=== PATIENT | female | born 1965 | race Caucasian/White ===

== ENCOUNTER 2017-05-01 08:30 | Outpatient (CLI) | payer BC ==
--- NOTE | 2017-05-01 11:37 | MRI ---
PRE AND POST CONTRAST ENHANCED MRI IMAGES OF THE BRAIN: History: Lumbar facet arthropathy. M46.96. Patient with right buttock pain. Technique: Multiplanar, multisequence pre and post contrast enhanced MRI images of the lumbar spine o btained. FINDINGS: For the purposes of this dictation, the last freely mobile vertebral body would be considered to be t he L5 vertebral body. All other vertebral bodies numbered according to this. T12-L1, L1-2, L2-3: Unremarkable. L3-4: There is some disc desiccation seen. There is mild bilateral facet hypertrophy. There is minima l but not significant degree of central and lateral recess stenosis. The neural foramen are patent. L4-5: Disc desiccation is seen. There is bilateral facet hypertrophy and ligamentum flavum hypertroph y. There is a broad based disc bulge. There is grade I anterolisthesis of L4 on L5 measuring approxim ately 3 mm. A moderate degree of central and lateral recess stenosis is present at this level. The ne ural foramen are patent. L5-S1: Disc desiccation is seen. There is an annular fissure seen along the posterior aspect of the a nulus fibrosis extending into the left L5-S1 lateral recess portion of the annulus fibrosis. There is mild facet hypertrophy. The central canal is patent. The neural foramen are also patent. IMPRESSION: Grade I anterolisthesis of L4 on L5 with central and lateral recess stenosis seen. POS: [facility]
== END 2017-05-01 08:31 | disposition home or self-care (01) ==
LOC: MRI 08:30
PROVIDERS: ATTEND Anesthesiology Pain Medicine
DX: M46.96 Unspecified inflammatory spondylopathy, lumbar region (principal); M43.16 Spondylolisthesis, lumbar region; M48.061 Spinal stenosis, lumbar region without neurogenic claudication
CPT/HCPCS: 72158

== ENCOUNTER 2018-12-01 09:17 | Outpatient (CLI) | payer BC ==
--- NOTE | 2018-12-01 11:19 | MRI ---
MRI CERVICAL SPINE NONCONTRAST: 12/01/18 HISTORY: 53-year-old female with right cervical radiculopathy. COMPARISON: 08/15/15. FINDINGS: Cervical spinal cord is normal in size and signal. Vertebral body heights are maintained. C1-2: No central stenosis. C2-3: Mild bilateral facet DJD. Disc space maintained. No central or neural foraminal stenosis. C3-4: Disc space maintained. Mild broad based disc-osteophytic bar complex encroaches upon anterior a spect of the spinal canal, but does not cause central stenosis. Mild to moderate right facet DJD. Mil d left facet DJD. No central or significant neural foraminal stenosis. C4-5: Moderate left facet DJD. Mild right facet DJD. Minimal grade I anterolisthesis of C4 on C5. Sha llow broad based disc-osteophytic bar complex indents the ventral aspect of the thecal sac, and cause s mild central spinal canal stenosis. No right neural foraminal stenosis. Small left uncinate process osteophytes. Apparently new finding of moderate left neural foraminal stenosis. C5-6: New anterior metallic plate and screws at C5 and C6. The previously demonstrated focal left lat eral disc herniation has been surgically resected, resulting in significant interval improvement in t he previously demonstrated high grade left neural foraminal stenosis. Currently, there is mild left n eural foraminal stenosis and no right neural foraminal stenosis. Broad based disc-osteophytic bar com plex causes mild central spinal canal stenosis. Mild right facet DJD. Moderate left facet DJD. C6-7: Broad based disc-osteophytic bar complex and mild ligamentum flavum thickening result in modera te central spinal canal stenosis. Bilateral small to moderate sized uncinate process osteophytes resu lt in moderate bilateral neural foraminal stenosis, right greater than left. Normal bilateral facets. C7-T1: Moderate to severe right facet DJD. Normal left facet joint. Mild right neural foraminal amina nosis. No left neural foraminal stenosis. No significant central stenosis. IMPRESSION: 1. Interval status post anterior cervical discectomy and fusion at C5-6, with resection of the p reviously demonstrated left lateral disc herniation, resulting in significant interval improvement of the previously demonstrated high grade left neural foraminal stenosis. 2. No high grade central spinal canal stenosis at any level. 3. Cervical spondylosis consisting of facet osteoarthrosis at various levels. 4. Moderate neural foraminal stenosis bilaterally at C6-7, and on the left at C4-5. POS: [facility]
--- NOTE | 2018-12-01 11:38 | MRI ---
MRI BRAIN WITH AND WITHOUT CONTRAST: DATE: 12/01/2018. HISTORY: A 53-year-old female with ICD-10 R20.0, paresthesia of skin. TECHNIQUE: Multiple sequences obtained in axial, sagittal, and coronal planes; pre and post IV injection of gado linium-based contrast agent: 14 mL MultiHance. FINDINGS: The ventricles are normal in size and configuration. There is no restricted diffusion, abnormal intr aaxial enhancement, mass, midline shift or any other mass effect, recent intraaxial hemorrhage, or ex traaxial fluid collection. There are scattered tiny T2-hyperintensities in the cerebral white matter consistent with mild chronic ischemic white matter changes due to mild microvascular atherosclerosis. 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 IMPRESSION: 1. Mild chronic ischemic white matter changes. 2. Otherwise negative. jnR POS: [facility]
== END 2018-12-01 09:18 | disposition home or self-care (01) ==
LOC: SCSMRI 09:17
PROVIDERS: ATTEND Psychiatry & Neurology Neurology
DX: R20.2 Paresthesia of skin (principal); I67.82 Cerebral ischemia; M47.812 Spondylosis without myelopathy or radiculopathy, cervical region; M48.02 Spinal stenosis, cervical region; Z98.1 Arthrodesis status
CPT/HCPCS: 70553; 72141

== ENCOUNTER 2019-03-31 12:38 | Outpatient (CLI) | payer BC ==
--- NOTE | 2019-03-31 14:15 | MRI ---
MRI lumbar spine with and without contrast: 03/31/2019 COMPARISON: 05/01/2017 HISTORY: Chronic back pain radiating down the left leg, right hip and right-sided back pain TECHNIQUE: Multiplanar multisequence MR imaging of the lumbar spine provided with and without contras t FINDINGS: The sagittal STIR imaging demonstrates no focal area of osseous marrow edema. There is small volume free fluid in the pelvic cul-de-sac and left hemipelvis, incompletely assessed on this exam. Mild anterolisthesis at L4-5 noted measuring in the 5 mm range. On the basis of 5 lumbar type vertebral bodies, the conus medullaris terminates at the L1-2 level. T12-L1: Mild bilateral facet hypertrophy. Intervertebral disc height and signal intensity within norm al limits. No significant central canal or neural foraminal stenosis. L1-2: Mild disc bulge present. Mild bilateral facet hypertrophy. No significant central canal or neur al foraminal stenosis. L2-3: There is mild bilateral facet hypertrophy. Intervertebral disc height and signal intensity appe ars within normal limits with no significant central canal or neural foraminal stenosis. L3-4: There is mild disc space narrowing and disc desiccation. There is a small left foraminal disc p rotrusion. There is no significant central canal or neural foraminal stenosis. L4-5: There is disc space narrowing and disc desiccation with mild disc bulge. There is prominent juvencio ateral facet hypertrophy with fluid within bilateral facet joints. There is mild central canal stenosis and mild bilateral neural foraminal stenosis. L5-S1: Prominent bilateral facet hypertrophy. There is disc space narrowing with disc desiccation. No significant central canal or neural foraminal stenosis. There are 2 round T2 hyperintense structures associated with the left facet joint posteriorly and lat erally measuring approximately 1.1 and 0.8 cm respectively. Postcontrast imaging demonstrates rim enhancement suggesting synovial cyst formation. The postcontrast imaging demonstrates no focal area o f abnormal enhancement within the osseous structures or the intervertebral discs. The imaged retroperitoneal structures demonstrate no acute findings. IMPRESSION: Degenerative change within the lumbar spine as detailed above. The most significant findi ngs are present at L4-5 on the basis of prominent facet hypertrophy and synovial cyst formation associated with the left facet joint.
== END 2019-03-31 12:39 | disposition home or self-care (01) ==
LOC: SCSMRI 12:38
PROVIDERS: ATTEND Anesthesiology Pain Medicine
DX: M47.26 Other spondylosis with radiculopathy, lumbar region (principal)
CPT/HCPCS: 72158

== ENCOUNTER 2019-05-07 07:37 | Outpatient (CLI) | payer BC ==
--- NOTE | 2019-05-07 10:26 | MRI ---
MRI LEFT KNEE: DATE: 05/07/2019. PROVIDED CLINICAL HISTORY: Left knee pain. FINDINGS: The anterior cruciate ligament, posterior cruciate ligament, medial collateral ligament, and lateral collateral ligamentous complex demonstrate an intact MR appearance, as does the extensor mechanism. There is complex grade III signal involving the body of the lateral meniscus. The medial meniscus de monstrates no evidence for tear. No focal articular cartilage loss is evident. There is a physiologic amount of fluid within the knee joint. There is a small Gant's cyst. No focal concerning regional marrow or muscular signal abnormality is apparent. IMPRESSION: Complex nondisplaced body of the lateral meniscus tear. POS: [facility]
--- NOTE | 2019-05-07 11:32 | MRI ---
MRI RIGHT ELBOW WITHOUT CONTRAST: Date: 05/07/2019 INDICATION: Right elbow pain with history of lateral epicondylitis and surgery. Concern for possible injury to th e lateral humeral epicondyle and biceps tendon. FINDINGS: The biceps and brachialis tendons are intact. Triceps intact. Ulnar collateral ligament, radial colla teral ligament, and lateral ulnar collateral ligament are intact. No osteochondral defect is evident. There is moderate tendinosis of the common extensor origin. The visualized ulnar nerve is normal yves earing. IMPRESSION: Moderate tendinosis of the common extensor origin. POS: [facility]
== END 2019-05-07 07:38 | disposition home or self-care (01) ==
LOC: SCSMRI 07:37
PROVIDERS: ATTEND Orthopaedic Surgery
DX: M25.562 Pain in left knee (principal); G89.29 Other chronic pain; M25.521 Pain in right elbow; S83.272A Complex tear of lateral meniscus, current injury, left knee, initial encounter; M67.823 Other specified disorders of tendon, right elbow

== ENCOUNTER 2019-06-23 09:12 | Outpatient (CLI) | payer BC ==
--- NOTE | 2019-06-23 09:44 | RAD ---
Lumbar spine 4 views flexion and extension HISTORY: Low back pain. Spondylolisthesis. COMPARISON: 01/15/2017. FINDINGS: There are 5 lumbar type vertebrae. Pedicles are intact. Leftward convex curvature on the fr ontal view. Weightbearing lateral views with flexion and extension. Vertebral body heights are maintained. Osteop hytosis most pronounced at the lower facets. There is 7 mm spondylolisthesis at the L4-5 level which does not change upon extension and increases to 8 mm upon flexion. 2 mm spondylolisthesis at the lumbosacral junction is stable upon flexion and extension. IMPRESSION: Minimal translational motion upon flexion associated with L4-5 spondylolisthesis. Unchang ed from the 2017 exam. Other degenerative type changes as detailed above, stable.
== END 2019-06-23 09:13 | disposition home or self-care (01) ==
LOC: BICRAD 09:12
PROVIDERS: ATTEND Anesthesiology Pain Medicine
DX: M43.16 Spondylolisthesis, lumbar region (principal)
CPT/HCPCS: 72110

== ENCOUNTER 2019-10-15 05:52 | Outpatient (CLI) | payer BC, OTHER ==
[2019-10-15 11:29] LABS: #Eosinphils 0.1 thou/uL (0.0-0.7); #Lymphocytes 1.1 thou/uL (1.20-3.40); #Monocytes 0.4 thou/uL (0.11-0.59); #Neutrophils 3.1 thou/uL (1.40-6.50); %Eosinophils 2.6 % (0.0-10.0); %Monocytes 8.9 % (0.0-10.0); %Neutrophils 64.5 % (42.0-75.0); Hemoglobin 12.7 g/dL (12.0-16.0); Mean Corpuscular HGB CONC 33.8 g/dL (32.0-36.0); Mean Corpuscular Hemoglobin 31.2 pg (27.0-31.0); Mean Corpuscular Volume 92.3 fL (78.0-98.0); Mean Platelet Volume 7.5 fL (7.4-10.4); Platelet Count 200 thou/uL (130-400); RBC Distribution Width 11.4 % (11.5-14.5); Red Blood Cell (RBC) Count 4.08 mill/uL (4.20-5.40); White Blood Cell (WBC) Count 4.7 thou/uL (4.8-10.8)
[2019-10-15 11:44] LABS: Bacteria/HPF None Seen HPF (None Seen); Bilirubin Negative (Negative); Blood, Urine Negative (Negative); Clarity Clear (Clear); Glucose, Urine (Dipstick) Normal (Negative); Leukocyte Negative Leu/uL (Negative); Nitrite Negative (Negative); Protein, Urine (Dipstick) Negative (Neg-Trace); RBC/HPF 0-3 HPF (0-3); Squamous Epithelial 0-3 HPF (0-3); Urobilinogen Normal mg/dL (Less than 2); WBC/HPF 0-3 HPF (0-3)
[2019-10-15 12:42] LABS: Anion Gap 13 mmol/L (10-20); BUN (Urea Nitrogen) 16 mg/dL (9.8-20.1); Calc. Creatinine Clearance 0 mL/min (70-130); Calcium 9.3 mg/dL (7.8-10.44); Carbon Dioxide 25 mmol/L (22-29); Chloride 104 mmol/L (98-107); Estimated GFR-MDRD 71; Glucose 90 mg/dL (70-105); Potassium 3.8 mmol/L (3.5-5.1); Sodium 138 mmol/L (136-145)
[2019-10-16 13:16] LABS: SARS-CoV-2 MS2 Positive; SARS-CoV-2 N Gene Negative; SARS-CoV-2 S Gene Negative; SARS-CoV-2 orf1ab Negative
[2019-10-18 11:37] LABS: Lyme IgG/IgM AB <0.91 ISR (0.00-0.90)
== END 2019-10-15 05:53 | disposition home or self-care (01) ==
LOC: LABBT 05:52
PROVIDERS: ATTEND Orthopaedic Surgery Hand Surgery
DX: Z01.812 Encounter for preprocedural laboratory examination (principal); Z11.59 Encounter for screening for other viral diseases; S63.214A Subluxation of metacarpophalangeal joint of right ring finger, initial encounter; M85.642 Other cyst of bone, left hand
CPT/HCPCS: 80048; 81001; 83520; 85025; 85652; 86038; 86200; 86225; 86618; 87635; U0003

== ENCOUNTER 2019-10-19 05:56 | Day surgery (SDC) | payer BC ==
[2019-10-14 10:50] VITALS: BMI 25.0
[2019-10-19] MEDS ORDERED: Fentanyl 100 MCG/2 ML VIAL ONE ×2 (06:22→07:05)
[2019-10-19] MEDS ORDERED: Midazolam HCl 2 mg/2 ml Vial ONE ×2 (06:22→07:05)
[2019-10-19] MEDS ORDERED: Bacitracin Zinc Ointment 30 gm TUBE ONE (06:44)
[2019-10-19] MEDS ORDERED: Sodium Chloride 0.9% 20 ML ONE (06:44)
[2019-10-19] MEDS ORDERED: Betamet Acet/Betamet Na Ph 30 MG/5 ML VIAL ONE (06:44)
[2019-10-19] MEDS ORDERED: Bupivacaine PF 0.5% 30 ML VIAL ONE (06:44)
[2019-10-19] MEDS ORDERED: Ondansetron PF 4 MG/2 ML Vial ONE ×2 (10:51→14:50)
[2019-10-19] MEDS ORDERED: Lidocaine 1% PF 5 ML VIAL ONE (14:50)
[2019-10-19] MEDS ORDERED: Dexamethasone 20 MG/5 ML VIAL ONE (14:50)
[2019-10-19] MEDS ORDERED: PROPOFOL 200 MG/20 ML VIAL ONE (14:50)
[2019-10-19] MEDS ORDERED: Ketorolac Tromethamine 30 MG/ML VIAL ONE (14:50)
[2019-10-19] MEDS ORDERED: Bupivacaine HCl 0.5%/Epinephrine 1:200,000/PF 30 ml Vial ONE (14:52)
--- NOTE | 2019-10-19 22:09 | OP ---
DATE OF PROCEDURE: 10/19/2019 ANESTHESIA: General and LMA technique , augmented by a right side one-shot block. PREOPERATIVE DIAGNOSES: 1. A1 komal tenosynovitis with triggering, contributing to locking at the right ring finger. 2. Right ring finger ulnar subluxation extensor tendon at the MCP joint, required centralization. 3. On the left side osteophyte, dorsal and ulnar with ulnar ganglion 7 to 8 mm from the dorsal thumb IPJ. POSTOPERATIVE DIAGNOSES: 1. A1 komal tenosynovitis with triggering, contributing to locking at the right ring finger. 2. Right ring finger ulnar subluxation extensor tendon at the MCP joint, required centralization. 3. On the left side osteophyte, dorsal and ulnar with ulnar ganglion 7 to 8 mm from the dorsal thumb IPJ. PROCEDURES PERFORMED: 1. Left side thumb: a. Arthrotomy with excision of osteophyte and synovectomy. b. Excision of ganglion cyst, 8 mm. 2. On the right side: a. A1 komal trigger. 3. Left side middle ring finger: a. A1 komal release. b. Flexor tenosynovectomy. c. Extensor tendon centralization. d. Application of Celestone over flexor tendon. INDICATIONS FOR PROCEDURE: The patient with thumb pain, interphalangeal joint mass, and dorsal ulnar osteophyte seen, did not resolve with conservative treatment. On the left side, the patient has both swelling Landon, but primarily felt to have a dorsal subluxation with possible palmar contribution, discovered with intraoperative exam. DESCRIPTION OF PROCEDURE: First, on the left side where tourniquet had been applied in the forearm because IV in the antecubital area. We exsanguinated the limb, gave the patient 12 mL of 0.50% metacarpophalangeal block level at the thumb base and then exsanguinated the limb, inflated the tourniquet to 250 mmHg pressure. A J-shaped incision was then made just ulnar to the mass, parallel to the interphalangeal joint and then 1 to 2 mm on the radial side proximally. We carried through skin and subcutaneous tissue, preserved as much of the ganglion cyst as possible. We followed the stalk into a slight defect in the junction of the middle 3rd and the ulnar 3rd of the extensor insertion. Immediately opening this, there was an osteophyte seen indenting and elevated the tendon, that was approximately 3 mm x 2 mm. It was excised along with the stalk of the mass that went into the joint. Both were sent as separate specimens along with some synovium from the joint. We irrigated the joint. We inflated the tourniquet and obtained hemostasis. We closed the extensor mechanism defect with a running 5-0 Prolene buried knot. We closed the skin with interrupted 5-0 nylon in simple pattern and we sent the specimen of the osteophyte and the ganglion to the lab. A bulky dressing was applied before finishing the contralateral side surgery, and afterwards, it was covered with Coban. The patient then had the right side approached and already had given a block, so only a small amount of Marcaine was given actually over the incision. Outlined a zigzag incision where no cut was made over the MP joint dorsally and a zigzag incision over the very thick A1 komal. During exam the tendon tended to lock in flexion as well as in extension and so we felt we had both palms thus extending the scope and procedure to include the A1 palmar procedure. First, we performed a dorsal approach, carried through skin and subcutaneous tissue where she had a very thin radial retinaculum that was almost so thin that we had difficulty dissected it off the capsule and the maher was thickened on the ulnar side and she had approximately a 1/3 subluxation ulnarly. We thus released the proximal 2/3 of the maher on the ulnar side including half of on the ulnar side, and then we dissected the thin radial retinaculum off the capsule. It was enough, however, to be repaired using a 5 suture [id number] 4-0 prolene technique for capsular reconstruction. The tendon was now centralized, but there was still sensation of mass effect and thickening on the palmar side. Thus, we turned attention to palmar side. We made a 1.5 cm incision, centered over the A1 komal, went down to A1 komal, saw a very thick senate fibrous tissue and then a very thick A1 komal, under which and proximal to it, after releasing the midline under direct visualization with Graham blade, there was very thick flexor tenosynovium, so we performed a flexor tenosynovectomy over 2 cm area and sent some of this as specimen. 3 mL of Celestone was placed here. We deflated the tourniquet. We obtained hemostasis and then closed first the palmar wound with interrupted 4-0 nylon in a mattress pattern and closed the dorsal wound with the same suture technique after obtained hemostasis. The patient was placed in a bulky dressing on the right side with excellent circulation with the MP joint at approximately 20 degrees of flexion involving the ring and small finger, and the index, long, and thumb were free. Job ID: [id number]
== END 2019-10-19 11:35 | disposition home or self-care (01) ==
LOC: SDC 05:56
PROVIDERS: ATTEND Orthopaedic Surgery Hand Surgery
PROC: 0LN80ZZ Release Left Hand Tendon, Open Approach (ICD-10-PCS; principal; 2019-10-19)
PROC: 0LB70ZZ Excision of Right Hand Tendon, Open Approach (ICD-10-PCS; principal; 2019-10-19)
DX: M66.241 Spontaneous rupture of extensor tendons, right hand (principal); M67.442 Ganglion, left hand; M65.341 Trigger finger, right ring finger; M65.9 Synovitis and tenosynovitis, unspecified; M25.741 Osteophyte, right hand; Z79.899 Other long term (current) drug therapy; Z88.5 Allergy status to narcotic agent
CPT/HCPCS: 88304; 88305; J0670; J0690; J0702; J1100; J1885; J2001; J2250; J2405; J2704; J3010; J3490; S0020

== ENCOUNTER 2022-01-11 07:43 | Outpatient (CLI) | payer BC ==
[2022-01-11 10:39] LABS: #Basophils 0.1 10x3/uL (0.0-0.2); #Eosinphils 0.2 10x3/uL (0.0-0.5); #Monocytes 0.4 10x3/uL (0.0-1.1); #Neutrophils 2.5 10x3/uL (1.5-8.4); %Basophils 1.3 % (0.0-2.0); %Eosinophils 4.4 % (0.0-6.0); %Lymphocytes 30.9 % (18.0-47.0); %Neutrophils 54.2 % (40.0-75.0); Hemoglobin 12.5 g/dL (12.0-15.5); Mean Corpuscular HGB CONC 33.6 g/dL (32.0-36.0); Mean Corpuscular Volume 89.4 fl (81.6-98.3); Mean Platelet Volume 9.8 fl (7.4-10.4); Platelet Count 224 10x3/uL (150-450); RBC Distribution Width 13.2 % (11.5-14.5); Red Blood Cell (RBC) Count 4.16 10x6/uL (3.90-5.03); White Blood Cell (WBC) Count 4.6 10x3/uL (3.5-10.5)
[2022-01-11 10:56] LABS: Anion Gap 13 mmol/L (10-20); BUN (Urea Nitrogen) 21 mg/dL (9.8-20.1); Calc. Creatinine Clearance 0 mL/min (70-130); Calcium 9.6 mg/dL (7.8-10.44); Carbon Dioxide 28 mmol/L (22-29); Chloride 106 mmol/L (98-107); Estimated GFR 90; Glucose 87 mg/dL (70-105); Sodium 143 mmol/L (136-145)
== END 2022-01-11 07:44 | disposition home or self-care (01) ==
LOC: LABBT 07:43
PROVIDERS: ATTEND Orthopaedic Surgery
DX: Z01.818 Encounter for other preprocedural examination (principal); S83.282A Other tear of lateral meniscus, current injury, left knee, initial encounter; Z20.822 Contact with and (suspected) exposure to COVID-19
CPT/HCPCS: 71046; 80048; 85025; 87811; 93005; 93010

== ENCOUNTER 2022-01-16 05:45 | Day surgery (SDC) | payer BC ==
[2022-01-14 15:52] VITALS: BMI 23.7
[2022-01-16] MEDS ORDERED: PROPOFOL 20 ML ONE (06:39)
[2022-01-16] MEDS ORDERED: Lidocaine 2% PF 5 ML VIAL ONE ×2 (06:39→07:59)
[2022-01-16] MEDS ORDERED: fentaNYL Citrate/PF 100 MCG/2 ML SYRINGE ONE (06:57)
[2022-01-16] MEDS ORDERED: Sodium Chloride 0.9% 100 ML ONE (07:18)
[2022-01-16] MEDS ORDERED: CEFAZOLIN 2 GM VIAL ONE (07:18)
[2022-01-16] MEDS ORDERED: Ketorolac Tromethamine 30 MG/ML VIAL ONE (07:59)
[2022-01-16] MEDS ORDERED: Ondansetron PF 4 MG/2 ML Vial ONE (07:59)
[2022-01-16] MEDS ORDERED: PROPOFOL 200 MG/20 ML VIAL ONE (07:59)
[2022-01-16] MEDS ORDERED: Dexamethasone 20 MG/5 ML VIAL ONE (07:59)
[2022-01-16] MEDS ORDERED: Bupivacaine HCl 0.5%/Epinephrine 1:200,000/PF 30 ml Vial ONE (07:59)
[2022-01-16] MEDS ORDERED: Lidocaine 1% MPF 2 ML VIAL ONE (07:59)
[2022-01-16] MEDS ORDERED: Fentanyl 100 MCG/2 ML VIAL ONE ×2 (08:52→09:07)
[2022-01-16] MEDS ORDERED: Promethazine HCl 25 MG/ML VIAL ONE (09:44)
[2022-01-16] MEDS ORDERED: traMADol HCl 50 MG TAB ONE (11:08)
== END 2022-01-16 11:30 | disposition home or self-care (01) ==
LOC: SDC 05:45
PROVIDERS: ATTEND Orthopaedic Surgery
PROC: 0SBD4ZZ Excision of Left Knee Joint, Percutaneous Endoscopic Approach (ICD-10-PCS; principal; 2022-01-16)
DX: S83.272A Complex tear of lateral meniscus, current injury, left knee, initial encounter (principal); M23.8X2 Other internal derangements of left knee; Z79.899 Other long term (current) drug therapy; Z88.5 Allergy status to narcotic agent; Z88.8 Allergy status to other drugs, medicaments and biological substances; Z98.1 Arthrodesis status
CPT/HCPCS: J0690; J1100; J1885; J2001; J2405; J2550; J2704; J3010; J3490

== ENCOUNTER 2023-04-30 07:08 | Observation (INO) | payer BC ==
[2023-04-25 09:16] VITALS: BMI 25.3
[2023-04-25 10:08] LABS: Bilirubin Neg (Negative); Blood, Urine Negative (Negative); Clarity Clear (Clear); Glucose, Urine (Dipstick) Normal (Negative); Ketone, Urine Negative (Negative); Leukocyte Negative (Negative); Nitrite Negative (Negative); Protein, Urine (Dipstick) 15 mg/dl (Neg-Trace); Specific Gravity, Urine 1.005 (1.005-1.030); Urobilinogen Normal mg/dL (Less than 2)
[2023-04-25 10:18] LABS: #Eosinphils 0.2 10x3/uL (0.0-0.5); #Monocytes 0.4 10x3/uL (0.0-1.1); #Neutrophils 2.3 10x3/uL (1.5-8.4); %Basophils 0.9 % (0.0-2.0); %Eosinophils 4.1 % (0.0-6.0); %Lymphocytes 33.9 % (18.0-47.0); %Monocytes 8.6 % (0.0-10.0); %Neutrophils 52.3 % (40.0-75.0); Hematocrit 41.1 % (34.9-44.5); Hemoglobin 13.9 g/dL (12.0-15.5); Mean Corpuscular HGB CONC 33.8 g/dL (32.0-36.0); Mean Corpuscular Hemoglobin 30.4 pg (27.0-33.0); Mean Corpuscular Volume 89.9 fl (81.6-98.3); Mean Platelet Volume 9.8 fl (7.4-10.4); Platelet Count 245 10x3/uL (150-450); RBC Distribution Width 12.7 % (11.5-14.5); Red Blood Cell (RBC) Count 4.57 10x6/uL (3.90-5.03); White Blood Cell (WBC) Count 4.4 10x3/uL (3.5-10.5)
[2023-04-25 10:20] LABS: Anion Gap 13 mmol/L (10-20); BUN (Urea Nitrogen) 13 mg/dL (9.8-20.1); Calc. Creatinine Clearance 0 mL/min (70-130); Calcium 9.9 mg/dL (7.8-10.44); Carbon Dioxide 28 mmol/L (22-29); Chloride 103 mmol/L (98-107); Estimated GFR 83; Glucose 74 mg/dL (70-105); Potassium 3.8 mmol/L (3.5-5.1); Sodium 140 mmol/L (136-145)
[2023-04-25 10:55] LABS: INR-International Normal Ratio 0.9; Prothrombin Time 9.4 sec (9.5-12.1)
[2023-04-30] MEDS ORDERED: Vancomycin 1 GM/200 ML (FROZEN) BAG ONE (08:10)
[2023-04-30] MEDS ORDERED: Tranexamic Acid 1,000 MG/10 ML VIAL ONE ×2 (08:10→13:35)
[2023-04-30] MEDS ORDERED: Sodium Chloride 0.9% 100 ML ONE ×2 (08:10→10:32)
[2023-04-30] MEDS ORDERED: fentaNYL 50 mcg/mL 1 mL Vial ONE ×5 (09:06→14:33)
[2023-04-30] MEDS ORDERED: Bupivacaine PF 0.5% 30 ML VIAL ONE (09:06)
[2023-04-30] MEDS ORDERED: Midazolam HCl 2 mg/2 ml Vial ONE (09:06)
[2023-04-30] MEDS ORDERED: Lidocaine 1% PF 5 ML VIAL ONE (09:52)
[2023-04-30] MEDS ORDERED: PROPOFOL 0 ML ONE (09:52)
[2023-04-30] MEDS ORDERED: fentaNYL PF 100 MCG/2 ML SYRINGE ONE (09:52)
[2023-04-30] MEDS ORDERED: PROPOFOL 20 ML ONE (09:52)
[2023-04-30] MEDS ORDERED: CEFAZOLIN 2 GM VIAL ONE (10:32)
[2023-04-30] MEDS ORDERED: Bupivacaine 0.25% HCL 30 ML VIAL ONE (10:32)
[2023-04-30] MEDS ORDERED: traMADol HCl 50 MG TAB PO PRN ×2 (10:45)
[2023-04-30] MEDS ORDERED: HYDROcodone/Acetaminophen 10/325 mg Tablet PO PRN ×2 (10:45)
[2023-04-30] MEDS ORDERED: Ropivacaine 0.2% 550 ML 550 ML NERVE BLCK SCH (10:45)
[2023-04-30] MEDS ORDERED: Zolpidem Tartrate 5 MG TAB PO PRN ×2 (10:45→12:56)
[2023-04-30] MEDS ORDERED: Promethazine HCl 25 MG/ML VIAL IM PRN ×2 (10:45→12:56)
[2023-04-30] MEDS ORDERED: fentaNYL 50 mcg/mL 1 mL Vial SLOW IVP PRN (10:45)
[2023-04-30] MEDS ORDERED: PHENYLEPHRINE-NS 100 MCG/ML 10 ML SYRINGE ONE (11:27)
[2023-04-30] MEDS ORDERED: ePHEDrine Sulfate 50 MG/10 ML VIAL ONE (11:27)
[2023-04-30] MEDS ORDERED: Dexamethasone 20 MG/5 ML VIAL ONE (11:27)
[2023-04-30] MEDS ORDERED: Glycopyrrolate 0.2 MG/ML 5 ML SYRINGE ONE (11:58)
[2023-04-30] MEDS ORDERED: Ondansetron PF 4 MG/2 ML Vial ONE ×2 (12:45→13:26)
[2023-04-30] MEDS ORDERED: Ondansetron PF 4 MG/2 ML Vial IVP PRN (12:56)
[2023-04-30] MEDS ORDERED: diphenhydrAMINE 25 MG CAP PO PRN (12:56)
[2023-04-30] MEDS ORDERED: Tranexamic Acid 1,000 MG in Sodium Chloride 0.9% 100 ML IVPB SCH (13:00)
[2023-04-30] MEDS ORDERED: Promethazine 25 MG TAB PO PRN (13:02)
[2023-04-30] MEDS ORDERED: Cyclobenzaprine 10 MG TAB PO PRN (13:02)
[2023-04-30] MEDS ORDERED: Ketorolac Tromethamine 30 MG (1 mL) VIAL ONE (13:04)
[2023-04-30] MEDS: Ketorolac Tromethamine 30 MG (1 mL) VIAL IVP SCH ×2 (13:56→17:24)
[2023-04-30] MEDS: Sodium Chloride 0.9% 1,000 ML IV SCH (13:56)
[2023-04-30] MEDS ORDERED: HYDROmorphone 0.5 MG/0.5 ML SYRINGE ONE ×2 (14:02→14:18)
[2023-04-30] MEDS: Gabapentin 300 MG CAP PO PRN ×2 (14:09→21:01)
[2023-04-30] MEDS: Methocarbamol 500 MG TAB PO PRN (14:11)
[2023-04-30] MEDS: CEFAZOLIN 2 GM in Sodium Chloride 0.9% 100 ML IVPB SCH (17:24)
[2023-04-30] MEDS ORDERED: Vancomycin (BATCH) 1.5 GM in Premix 1 BAG IVPB SCH (20:00)
[2023-04-30] MEDS: Senokot S 8.6-50 MG TAB PO SCH (20:46)
[2023-04-30] MEDS: Aspirin 81 mg Enteric Coated Tablet PO SCH (20:46)
[2023-05-01] MEDS: Sodium Chloride 0.9% 1,000 ML IV SCH ×2 (00:13→08:12)
[2023-05-01] MEDS: Ketorolac Tromethamine 30 MG (1 mL) VIAL IVP SCH ×3 (00:14→12:45)
[2023-05-01] MEDS: Ondansetron PF 4 MG/2 ML Vial IVP PRN ×2 (02:24→10:01)
[2023-05-01] MEDS: CEFAZOLIN 2 GM in Sodium Chloride 0.9% 100 ML IVPB SCH (02:24)
[2023-05-01] MEDS: Acetaminophen 325 MG TAB PO PRN ×2 (05:43→10:14)
[2023-05-01] MEDS: Methocarbamol 500 MG TAB PO PRN ×2 (05:44→12:45)
[2023-05-01 05:54] LABS: Hematocrit 33.4 % (36.0-47.0); Hemoglobin 10.9 g/dL (12.0-16.0); Mean Corpuscular HGB CONC 32.6 g/dL (32.0-36.0); Mean Corpuscular Hemoglobin 29.9 pg (27.0-31.0); Mean Corpuscular Volume 91.8 fl (78.0-98.0); Mean Platelet Volume 9.5 fL (7.4-10.4); Platelet Count 144 10x3/uL (130-400); RBC Distribution Width 12.9 % (11.5-14.5); Red Blood Cell (RBC) Count 3.64 mill/uL (4.20-5.40); White Blood Cell (WBC) Count 8.6 10x3/uL (4.8-10.8)
[2023-05-01] MEDS ORDERED: Chlorthalidone 25 MG TAB PO SCH (09:00)
[2023-05-01] MEDS ORDERED: Cholecalciferol 1,000 UNITS (25 MCG) TAB PO SCH (09:00)
[2023-05-01] MEDS ORDERED: Ferrous Gluconate 324 MG TAB PO SCH (09:00)
[2023-05-01] MEDS ORDERED: Magnesium Oxide 400 MG TAB PO SCH (09:00)
[2023-05-01] MEDS ORDERED: Multivitamin W/ Minerals 1 TAB PO SCH (09:00)
[2023-05-01] MEDS ORDERED: Potassium Chloride 8 MEQ TAB PO SCH (09:00)
[2023-05-01] MEDS: Gabapentin 300 MG CAP PO PRN (10:01)
[2023-05-01] MEDS: Aspirin 81 mg Enteric Coated Tablet PO SCH (10:02)
[2023-05-01] MEDS: Senokot S 8.6-50 MG TAB PO SCH (10:03)
[2023-05-01 12:41] VITALS: BP 122/70; TEMP 98.6
[2023-05-02] MEDS ORDERED: CeleCOXIB 100 MG CAP PO SCH (12:00)
== END 2023-05-01 13:38 | disposition home or self-care (01) ==
LOC: SDC 07:08 → SURG B 12:56
PROVIDERS: ADMIT Orthopaedic Surgery; ATTEND Orthopaedic Surgery
PROC: 0SRD0JZ Replacement of Left Knee Joint with Synthetic Substitute, Open Approach (ICD-10-PCS; principal; 2023-05-01)
DX: M17.12 Unilateral primary osteoarthritis, left knee (principal); Z98.890 Other specified postprocedural states; Z88.5 Allergy status to narcotic agent; Z88.2 Allergy status to sulfonamides; Z88.8 Allergy status to other drugs, medicaments and biological substances
CPT/HCPCS: 36415; 80048; 81003; 85025; 85027; 85610; 86850; 86900; 86901; 87081; A4306; C1713; C1776; J1100; J1170; J1790; J1885; J2250; J2405; J2704; J2795; J3010; J3370; J3370-JW; J3490; Q0169; S0020